=== PATIENT | female | born 1945 | race Caucasian/White ===

== ENCOUNTER 2020-04-11 10:15 | Day surgery (SDC) | payer OTHER ==
[2020-04-07 09:01] LABS: Absolute Lymphocytes (CBC) 1.3 K/uL (0.7-4.9); Hematocrit 38.2 % (36.0-45.0); Lymphocytes % 18.5 % (15.3-44.8); MPV 8.5 fL (7.6-11.3); Protime INR 0.96; RBC Red Blood Cell Count 4.36 M/uL (3.86-4.86)
[2020-04-07 09:04] LABS: Potassium 4.2 mmol/L (3.5-5.1)
--- NOTE | 2020-04-07 10:04 | RAD REPORT ---
EXAM DESCRIPTION: Ashley Garland (2 Views)04/07/2020 9:56 am CLINICAL HISTORY: Preop for wrist fracture repair COMPARISON: None FINDINGS: The lungs appear clear of acute infiltrate. The heart is normal size IMPRESSION: No acute abnormalities displayed
--- NOTE | 2020-04-07 12:59 | EKG ---
Test Date: 2020-04-07 Test Time: 07:14:52 Shuttle Final Inspector: VIVEK MEASUREMENT RESULTS: Intervals: Rate: 60 TX: 182 QRSD: 74 QT: 408 QTc: 408 [place]: P: 71 TX: 182 QRS: 41 T: 49 INTERPRETIVE STATEMENTS: Normal sinus rhythm Normal ECG Compared to ECG 07/25/2000 09:06:00 No significant changes Electronically Signed On 04-07-20 12:58:15 CDT by Bret Maguire
[2020-04-11] MEDS ORDERED: CEFAZOLIN/SWI 1gm 1 GM/10 ML SYR ONE (10:26)
[2020-04-11] MEDS ORDERED: Ringers Lactate 1,000 ML IV ONE ×2 (10:26→13:01)
[2020-04-11] MEDS ORDERED: BUPIVACAINE 0.5% PF 10 ML VIAL ONE (10:30)
[2020-04-11] MEDS ORDERED: FENTANYL CITR 100 MCG/2 ML ONE (10:45)
[2020-04-11] MEDS ORDERED: LIDOCAINE 2% MPF 5 ML VIAL ONE (10:45)
[2020-04-11] MEDS ORDERED: MIDAZOLAM HCL 2 MG/2 ML INJ ONE (10:45)
[2020-04-11] MEDS ORDERED: propofoL 200 MG/20 ML VIAL IV ONE (10:45)
[2020-04-11] MEDS ORDERED: ROPLVACAINE HCL 40 ML ONE (10:45)
[2020-04-11] MEDS ORDERED: NS 0.9% VIAL 10 ML ONE (10:45)
[2020-04-11] MEDS ORDERED: dexAMETHasone 10 MG/ML VIAL ONE (10:45)
[2020-04-11] MEDS ORDERED: ONDANSETRON 4 MG/2 ML VIAL ONE (10:46)
[2020-04-11] MEDS ORDERED: EPHEDRINE SULF 50 MG/ML VIAL ONE (12:03)
[2020-04-11] MEDS ORDERED: KETOROLAC 30 MG/ML INJ ONE (12:06)
--- NOTE | 2020-04-11 13:08 | P.BOP ---
Preoperative diagnosis: left distal radius fracture Postoperative diagnosis: same Primary procedure: open reduction internal fixation of left distal radius fracture [employer]: NONE,NONE Estimated blood loss: <5 cc Specimen: none Findings: see dictation Anesthesia: General Implants: Acumed Narrow 3 hole locking distal radius plate Fluids & blood products: per anesthesia record; TT: 74 mins @ 250 mmHg Transferred to: Recovery Room Condition: Good
[2020-04-11 13:32] VITALS: O2SAT 96
[2020-04-11 14:12] VITALS: BP 142/58; TEMP 97.2
--- NOTE | 2020-04-11 14:12 | RAD REPORT ---
EXAM DESCRIPTION: RAD - Wrist Left 2 View - 04/11/2020 1:06 pm CLINICAL HISTORY: Radial fracture FINDINGS: Sideplate and screws affix a radial fracture. Surgery performed by Dr. Evans Fluoroscopy time 0.4 minutes. Forty-one fluoroscopic spot images obtained
--- NOTE | 2020-04-11 14:27 | RAD REPORT ---
EXAM DESCRIPTION: RAD - Wrist Left 2 View - 04/11/2020 2:18 pm CLINICAL HISTORY: Radial fracture FINDINGS: Sideplate and screws affix a distal radial fracture. Avulsion fracture ulnar styloid proce ss No dislocation Splint immobilizes the wrist
[2020-04-11] MEDS ORDERED: HYDROCODONE/APAP 7.5/325 MG TAB ONE (14:45)
--- NOTE | 2020-04-12 01:04 | OP ---
Date of Procedure: 04/11/2020 Surgeon: Federico Evans MD Preoperative Diagnosis: Left distal radius fracture. Postoperative Diagnosis: Left three-part intra-articular distal radius fracture. Procedure Performed: Open reduction and internal fixation of left three-part intra-articular distal radius fracture. Anesthesia: General LMA. Fluids: Per Anesthesia record. Estimated Blood Loss: Less than 5 mL. Complications: None. Tourniquet Time: 74 minutes at 250 mmHg. Implants: Acumed narrow 3-hole locking distal radius plate. Indication For Procedure: Claudette is a 74-year-old female who presented to my clinic with history of a fall onto her outstretched left arm with subsequent pain and deformity. She was seen in the ER and was noted to have a significantly displaced and comminuted distal radius fracture. She was placed in a sugar-tong splint. X-rays were consistent with significant displacement and angulation. I discus sed with the patient at length risks and benefits associated with operative and nonoperative treatmen t given the displaced and recommended operative treatment including internal fixation and open reduct ion. She expressed understanding and elected to proceed with operative treatment. Description Of Procedure: After informed consent was obtained, the patient was identified in the pre operative holding area. The left upper extremity was marked. The patient was then brought back to [facility] operating room, transferred to the operating table in supine fashion, placed under general LMA ane sthesia. The left upper extremity was then prepped and draped in usual sterile fashion. A time-out was initiated. Correct patient and procedure were confirmed and identified. The patient did receive preoperative prophylactic antibiotics. The left upper extremity was then exsanguinated using an Esm arch and tourniquet was inflated to 250 mmHg. Approximately, a 10 cm longitudinal incision was made centered over the FCR tendon consistent with a volar Lito approach. Dissection was taken on the fle xor of the FCR tendon sheath, which was split and divided. The FCR tendon was then gently retracted radially. The floor of the tendon sheath was then opened and split proximally and distally. A Gail aner retractor was then placed and blunt dissection was then taken down of the pronator quadratus whi ch was elevated off the radial aspect of the distal radius and elevated using a wood handle elevator. The fracture was identified and it was debrided using a rongeur and curette. Using a [place] elevato r, the fracture was reduced. There was noted to have 3 main parts with an intra-articular split and a radial styloid split. After reduction, using a [place] elevator and manipulation, the fracture was t hen held reduced with 2 K-wires in anatomic position. Once proper reduction was confirmed, a 3-hole narrow Acumed distal radius locking plate was placed. It was temporarily fixed using K-wires and red uction was then confirmed using fluoroscopy in both AP and lateral views and was first fixed to the s haft using a 3.5 cortical screw in bicortical fashion. A non-locking cortical screws were in placed in the distal segment to help reduce the fracture and held it to the plate. 4 unicortical locking sc rews were then placed within the distal segment. Again, fixing distal ulna segment as well as distal radial styloid segment with overall good alignment. 2 remaining shaft screws were placed in bicorti judy fashion using 3.5 cortical screws. Final x-rays were taken to ensure proper reduction and placem ent of a plate in both AP and lateral views. The wound was then irrigated thoroughly with normal marcelino ine. Subcutaneous tissue was approximated using a 2-0 Vicryl. Skin was approximated using a 3-0 nyl on. Sterile dressings were applied. The patient was placed in a sugar-tong splint. Tourniquet was let down. Patient was awakened and transferred to PACU in stable condition. Postoperative Plan: The patient will be nonweightbearing of her left upper extremity. She will foll ow up in 2 weeks for wound check and suture removal and will be placed in a Velcro brace, and begin working on range of motion exercises o f her digits. CV/MODL Voice ID: [id number] Report ID: [id number]
== END 2020-04-11 15:30 | disposition home or self-care (01) ==
LOC: OR 10:15
PROVIDERS: ATTEND Orthopaedic Surgery Sports Medicine
PROC: 0PSJ04Z Reposition Left Radius with Internal Fixation Device, Open Approach (ICD-10-PCS; principal; 2020-04-11 12:00)
DX: S52.572A Other intraarticular fracture of lower end of left radius, initial encounter for closed fracture (principal); Z11.59 Encounter for screening for other viral diseases; M19.90 Unspecified osteoarthritis, unspecified site; I10 Essential (primary) hypertension; K21.9 Gastro-esophageal reflux disease without esophagitis
CPT/HCPCS: 93005; 85025; 80048; 36415; 85610; 85730; 71046; 73100 ×2; 25609; J2704; J2250; J3010; J1100; J2795; J0690; J7120 ×2; J2405